=== PATIENT | female | born 1970 | race Caucasian/White ===

== ENCOUNTER → 2020-05-21 | Day surgery (SDC) | payer BC, OTHER ==
[~2020-05-21] MED LIST: ESTRADIOL1 MG PO; ETOMIDATE 2 MG/ML 10 ML INJ IV ONE; IOPAMIDOL 200 MG/ML 20 ML VIAL IT ONE; LIDOCAINE HCL 1% 30ML-PF VIAL ONE; LIDOCAINE HCL 2% LOCAL INJ 5 ML SDV VIAL INJ ONE; MOBIC7.5 MG PO; NORCO 7.5-3251 EACH PO; PROPOFOL IV EMULSION 10 MG/ML 20 ML VIAL ONE; TRIAMCINOLONE ACET 40 MG/ML VIAL ONE; XANAX0.25 MG PO
[2020-05-21 07:33] VITALS: BP 152/91
--- NOTE | 2020-05-21 08:47 | Diagnostic Imaging Report ---
OR Fluoroscopy: IMPRESSION: Fluoroscopy service provided in the OR. Interpretation not requested. Signed by: Fabiano Lynn MD on 05/21/2020 8:43 AM
== END | disposition home or self-care (01) ==
LOC: OR 05:42
PROVIDERS: ATTEND Physical Medicine & Rehabilitation Pain Medicine
DX: M47.896 Other spondylosis, lumbar region (principal); Z88.2 Allergy status to sulfonamides; Z01.810 Encounter for preprocedural cardiovascular examination; Z01.812 Encounter for preprocedural laboratory examination; Z11.59 Encounter for screening for other viral diseases; Z86.718 Personal history of other venous thrombosis and embolism; Z87.891 Personal history of nicotine dependence
CPT/HCPCS: 64493; 64494; 64495; 93005; J2001 ×2; J2704; J3301; Q9967; U0002; 77003

== ENCOUNTER → 2020-07-16 | Day surgery (SDC) | payer BC, OTHER ==
[~2020-07-16] MED LIST changes: +BUPIVACAINE 0.25% 30ML SDV INJ ONE; -ETOMIDATE 2 MG/ML 10 ML INJ IV ONE; -TRIAMCINOLONE ACET 40 MG/ML VIAL ONE
[2020-07-16 08:05] VITALS: BP 131/77
== END | disposition home or self-care (01) ==
LOC: OR 06:10
PROVIDERS: ATTEND Physical Medicine & Rehabilitation Pain Medicine
DX: M47.896 Other spondylosis, lumbar region (principal); I34.1 Nonrheumatic mitral (valve) prolapse; Z01.812 Encounter for preprocedural laboratory examination; Z11.59 Encounter for screening for other viral diseases; Z88.2 Allergy status to sulfonamides; Z86.718 Personal history of other venous thrombosis and embolism; Z87.891 Personal history of nicotine dependence
CPT/HCPCS: 64493; 64494; 64495; J2001 ×2; J2704; Q9967; U0002; 76000